=== PATIENT | female | born 1980 | race Caucasian/White ===

== ENCOUNTER → 2018-02-15 | Day surgery (SDC) | payer BC ==
[~2018-02-15] MED LIST: ACYCLOVIR200 MG PO; BIOTIN800 MCG PEG; CALCIUM ACETAT667 M1 PO; DICYCLOMINE HCL10 MG PO; FENTANYL CITRATE/PF 100MCG/2 ML INJ ONE; FLONASE; GARLIC500 M1 PO; GINKGO BILOBA500 MG PO; HYOSCYAMINE SULFATE 0.5 MG/ML AMP ONE; JUNEL FE 1 MG-1 EACH PO; MIDAZOLAM HCL 2 MG/2 ML VIAL ONE; NIACIN100 MG PO; ONDANSETRON ODT8 MG PO; PANTOPRAZOLE SO40 MG PO; PROPOFOL IV EMULSION 10 MG/ML 50 ML VIAL ONE; SEROQUEL25 MG PO; VIT B12 PO; VIT C PO; VIT E PO; ZADITOR5 ML OP; ZYRTEC-D TABLE1 EACH PO
[2018-02-15 10:08] LABS: WBC,FECAL (FECAL LACTOFERRIN) NEGATIVE (NEGATIVE)
--- NOTE | 2018-02-15 10:45 | Operative Report ---
DATE OF PROCEDURE: February 15, 2018 REFERRING PHYSICIAN: Dr. Byron Toro PROCEDURES PERFORMED 1. Esophagogastroduodenoscopy with biopsies. 2. Colonoscopy with biopsies. INDICATIONS FOR EGD: Bloating, nausea, excessive belching. INDICATIONS FOR COLONOSCOPY: Chronic diarrhea. MEDICATION: Patient was done under MAC. Please see anesthesiologist's note. PROCEDURE: With the patient in the left lateral decubitus position, the flexible fiberoptic Olympus gastroscope was introduced into the esophagus under direct visualization without any difficulty. There was some patchy erythema noted in the distal esophagus. The scope was then advanced with ease into the stomach, and the mucosa overlying the antrum and the body revealed some patchy erythema and low-grade to moderate edema, and biopsies were obtained and sent to stain for H. pylori. Pylorus appeared to be of normal contour and shape. It was intubated with ease, and the scope was advanced all the way to the 2nd portion of the duodenum. Biopsies were obtained from the proximal 2nd portion to rule out sprue. Mucosa overlying the duodenal bulb appeared to be within normal limits. The scope was then withdrawn back into the stomach and retroflexed. The mucosa overlying the fundus and the cardia appeared to be within normal limits. The scope was then straightened out. The stomach was decompressed. Scope was subsequently withdrawn. Patient tolerated the procedure well. IMPRESSION 1. Distal esophagitis. 2. Gastritis, biopsied. Biopsies sent to stain for H. pylori. 3. Rule out sprue. PLAN: Follow up histology. Initiate Protonix 40 mg 1 p.o. q.a.m. a.c. The patient was then turned around. After adequate lubrication of the anal canal, a flexible fiberoptic Olympus colonoscope was inserted into the rectum with ease and advanced all the way to the cecum. The mucosa overlying the cecum appeared to be within normal limits. The ileocecal valve was intubated, and the scope was advanced into the terminal ileum. Biopsies were obtained. The scope was then withdrawn back into the colon. The scope was then withdrawn slowly. Mucosa overlying the ascending and transverse appeared to be within normal limits. The mucosa overlying the left colon revealed some patchy areas of erythema and low-grade edema, and multiple random biopsies were obtained. The scope was then retroflexed into the distal rectum, and small internal hemorrhoids were noted, none of which was actively bleeding. The scope was then straightened out. The scope was subsequently withdrawn after securing an adequate stool specimen that was sent for the appropriate stool studies. Patient tolerated the procedure well. IMPRESSION 1. Mild, patchy, left-sided colitis. 2. Internal hemorrhoids, none actively bleeding. PLAN: Follow up histology. Follow up stool studies. Initiate Bentyl 10 mg 1 p.o. t.i.d. and VSL #3 DS 1 p.o. daily. Job#: [id number] cc:BYRON TORO MD
[2018-02-15 11:35] LABS: C DIFFICILE TOXIN A&B AMP PROB NEGATIVE (NEGATIVE)
== END | disposition home or self-care (01) ==
LOC: OR 06:48
PROVIDERS: ATTEND Internal Medicine Gastroenterology
DX: K29.70 Gastritis, unspecified, without bleeding (principal); K51.50 Left sided colitis without complications; K20.9 Esophagitis, unspecified; K21.9 Gastro-esophageal reflux disease without esophagitis; K64.8 Other hemorrhoids; E66.9 Obesity, unspecified; J45.909 Unspecified asthma, uncomplicated; F31.9 Bipolar disorder, unspecified; F41.9 Anxiety disorder, unspecified; Z68.31 Body mass index [BMI] 31.0-31.9, adult; Z83.79 Family history of other diseases of the digestive system
CPT/HCPCS: 43239; 45380; 81025; 83630; 83993; 87045; 87177; 87328; 87493; J1980; J2250

== ENCOUNTER → 2019-11-10 | Day surgery (SDC) | payer BC ==
[~2019-11-10] MED LIST changes: -BIOTIN800 MCG PEG; +BIOTIN800 MCG PO; +CBD OIL PO; +CULTURELLE1 EACH PO; +ESSENTIAL ENZYMES PO; -FENTANYL CITRATE/PF 100MCG/2 ML INJ ONE; +FISH OIL 1,0001 EAC2 PO; +GLUCAGON FOR INJ 1 MG VIAL ONE; +GLUCOSAMINE-CH1 EA18 PO; +HYOSCYAMINE 0.125 MG TAB ONE; -HYOSCYAMINE SULFATE 0.5 MG/ML AMP ONE; +LEXAPRO10 MG PO; +LIDOCAINE HCL 2% LOCAL INJ 5 ML SDV VIAL INJ ONE; +POTASSIUM PO; +TRAZODONE HCL50 MG PO; +VIT D3 PO; +ZINC PO
--- OUTSIDE RECORDS SUMMARY | 2019-11-10 06:23 | XMS REPORT ---
Author Author [facility] Address Unknown Phone Unavailable Care Team Providers Care Physician Executive Name Role Phone Unavailable Unavailable Payers Payer Name Policy Type Policy Number Effective Date Expiration Date Problems This patient has no known problems. Allergies, Adverse Reactions, Alerts Allergy Name Allergy Type Status Severity Reaction(s) Onset Date Inactive Date Treating Clinician Comments No Known Allergies DA Active U 2018-06-14 00:00:00 Medications This patient has no known medications.
--- OUTSIDE RECORDS SUMMARY | 2019-11-10 06:23 | XMS REPORT | Summary of Care ---
Author Author JUAN Rhoades, JOY Organization Unknown Address Unknown Phone Unavailable Care Team Providers Care Dump Operator Name Role Phone Gloria Millan R.N. Unavailable Unavailable JOY MARTINEZ M.D. Unavailable Unavailable Unavailable Unavailable Functional Status Name Dates Details Functional status health issues are not documented Status: Name Dates Details Cognitive status health issues are not documented Status: Problems Name Dates Details Screening for STD (sexually transmitted disease) (V74.5, Z11.3) Status: Active Bacterial vaginosis (616.10, N76.0) Status: Active Discharge from the vagina (623.5, N89.8) Status: Active control Status: Active Medications Name Dates Details TABS Active SEROquel TABS * Refills: 0 Active Zyrtec TABS * Refills: 0 Active Flonase Allergy Relief 50 MCG/ACT Nasal Suspension * Refills: 0 Active 09/19 1-20 MG-MCG Oral Tablet TAKE ONE TABLET BY MOUTH DAILY * Quantity: 84 Refills: 3 JOY MARTINEZ M.D. * Start : 04-Jan-2018 Active Fluconazole 150 MG Oral Tablet TAKE 1 TABLET 1 TIME ONLY. * Quantity: 1 Refills: 1 JOY MARTINEZ M.D. * Start : 04-Jan-2018 Active Allergies and Adverse Reactions Name Dates Details No Known Allergies (Allergy) Status: Active Past Medical History Name Dates Details History of No significant past medical history Status: Resolved Procedures Procedure Dates Details Procedures not documented Immunization Name Dates Details Immunizations not documented Social History Name Dates Details - Status: Name Dates Details Never smoker Vital Signs Date Test Result Details No Known Vitals to report Results Date Description Value Details Results not documented Plan of Care Name Dates Details Planned Observations Planned Goals not documented Interventions Provided Medication Changes* Fluconazole 150 MG Oral Tablet - Renew Instructions Name Dates Details Instructions not documented Encounters Appointment; JOY MARTINEZ M.D. Encounter Diagnosis: Problem not documented On: 21-Dec-2017 10:20
[2019-11-10 10:47] VITALS: BP 117/65
--- NOTE | 2019-11-10 12:32 | Operative Report ---
DATE OF PROCEDURE: 11/10/2019 SURGEON: Ji Mccrary MD PROCEDURE: Colonoscopy with polypectomy and biopsies. INDICATIONS FOR COLONOSCOPY: Crampy lower abdominal pain, diarrhea. MEDICATIONS: The patient was done under MAC, please see anesthesiologist's note. PROCEDURE IN DETAIL: With the patient in the left lateral decubitus position, a flexible fiberoptic Olympus colonoscope was inserted into the rectum with ease and advanced all the way to the cecum. A minute polyp was noted in the cecum that was removed per the cold biopsy forceps. The ileocecal valve was intubated and the scope was advanced into the terminal ileum, biopsies were obtained. The scope was then withdrawn back into the colon. It was then withdrawn slowly and mucosa overlying the ascending and the transverse grossly appeared to be within normal limits. There was some patchy mild inflammatory changes noted in the left colon and the rectum, and random biopsies were obtained. The scope was then retroflexed into the distal rectum and small internal hemorrhoids were noted, none of which was actively bleeding. The scope was then straightened out and it was subsequently withdrawn after securing an adequate stool specimen that was sent for the appropriate stool studies. The patient tolerated the procedure well. IMPRESSION: 1. Cecal polyp, minute, removed per cold biopsy forceps. 2. Mild patchy left-sided colitis. 3. Proctitis, mild. 4. Internal hemorrhoids, none actively bleeding. PLAN: Follow up histology. Follow up stool studies. Check IBD panel, sedimentation rate, and CRP panel. Check celiac panel. If serology is negative then we will consider a trial of Lialda in this patient. We will increase Bentyl to 20 mg p.o. t.i.d. and also initiate by Viberzi 75 mg one p.o. b.i.d. Ji Mccrary [place] [facility] [place][id number] cc: Byron Toro MD
[2019-11-10 15:15] LABS: WBC,FECAL (FECAL LACTOFERRIN) NEGATIVE (NEGATIVE)
[2019-11-10 15:59] LABS: C DIFFICILE TOXIN A&B AMP PROB NEGATIVE (NEGATIVE)
[2019-11-12 22:07] LABS: ENDOMYSIAL ANTIBODIES, IGA Negative (Negative)
== END | disposition home or self-care (01) ==
LOC: OR 06:07
PROVIDERS: ATTEND Internal Medicine Gastroenterology
DX: K51.50 Left sided colitis without complications (principal); D12.0 Benign neoplasm of cecum; K62.89 Other specified diseases of anus and rectum; K64.8 Other hemorrhoids; K21.9 Gastro-esophageal reflux disease without esophagitis; G89.29 Other chronic pain; J45.909 Unspecified asthma, uncomplicated; J30.2 Other seasonal allergic rhinitis; F41.9 Anxiety disorder, unspecified
CPT/HCPCS: 36415; 45380; 81025; 82784; 83516; 83630; 83993; 85651; 86140; 86256 ×2; 86671; 87045; 87177; 87328; 87493; J1610; J2001; J2250; J2704; 45378; 45384; 45385

== ENCOUNTER → 2020-12-31 | Outpatient (CLI) | payer BC ==
[~2020-12-31] MED LIST changes: -GLUCAGON FOR INJ 1 MG VIAL ONE; -HYOSCYAMINE 0.125 MG TAB ONE; -LIDOCAINE HCL 2% LOCAL INJ 5 ML SDV VIAL INJ ONE; -MIDAZOLAM HCL 2 MG/2 ML VIAL ONE; -PROPOFOL IV EMULSION 10 MG/ML 50 ML VIAL ONE
== END ==
LOC: US 07:12
PROVIDERS: ATTEND Internal Medicine Gastroenterology
DX: R10.10 Upper abdominal pain, unspecified (principal); K76.0 Fatty (change of) liver, not elsewhere classified
CPT/HCPCS: 76705; 78227; 81025; A9537

== ENCOUNTER → 2021-07-31 | Day surgery (SDC) | payer BC ==
[~2021-07-31] MED LIST changes: +FENTANYL CITRATE/PF 100MCG/2 ML INJ ONE; +LIDOCAINE HCL 2% LOCAL INJ 5 ML SDV VIAL INJ ONE; +METOCLOPRAMIDE HCL 10 MG/2ML VIAL ONE; +MIDAZOLAM HCL 2 MG/2 ML VIAL ONE; +ONDANSETRON HCL INJ 2MG/ML 2ML 2 MG/ML VIAL ONE; +POVIDONE IODINE 0.05% 0.05 % ML PO ONE; +PRISTIQ ER50 MG PO; +PROPOFOL IV EMULSION 10 MG/ML 20 ML VIAL ONE; +VSL#3 CAPSULE1 EACH
[2021-07-31 10:36] VITALS: BP 113/70
== END | disposition home or self-care (01) ==
LOC: OR 08:15
PROVIDERS: ATTEND Internal Medicine Gastroenterology
DX: K29.70 Gastritis, unspecified, without bleeding (principal); K31.7 Polyp of stomach and duodenum; K20.90 Esophagitis, unspecified without bleeding; K21.9 Gastro-esophageal reflux disease without esophagitis; Z86.010 Personal history of colon polyps; K51.90 Ulcerative colitis, unspecified, without complications; K64.8 Other hemorrhoids; J45.909 Unspecified asthma, uncomplicated; G80.9 Cerebral palsy, unspecified; M06.9 Rheumatoid arthritis, unspecified; M19.90 Unspecified osteoarthritis, unspecified site; F41.9 Anxiety disorder, unspecified; F32.A Depression, unspecified; Z91.02 Food additives allergy status; Z01.810 Encounter for preprocedural cardiovascular examination; Z01.812 Encounter for preprocedural laboratory examination; Z20.822 Contact with and (suspected) exposure to COVID-19
CPT/HCPCS: 43239; 81025; 93005; C9113; J2001; J2250; J2405; J2704; J2765; J3010; U0002

== ENCOUNTER → 2022-09-23 | Outpatient (CLI) | payer BC ==
[~2022-09-23] MED LIST changes: +BUPROPION XL150 MG PO; +CYCLOBENZAPRINE10 MG PO; +DESVENLAFAXINE50 M1 PO; +DIAZEPAM5 MG PO; -FENTANYL CITRATE/PF 100MCG/2 ML INJ ONE; +FLECTOR1 EACH TD; +LIALDA1.2 GM PO; -LIDOCAINE HCL 2% LOCAL INJ 5 ML SDV VIAL INJ ONE; +MELOXICAM7.5 MG PO; -METOCLOPRAMIDE HCL 10 MG/2ML VIAL ONE; -MIDAZOLAM HCL 2 MG/2 ML VIAL ONE; -ONDANSETRON HCL INJ 2MG/ML 2ML 2 MG/ML VIAL ONE; -POVIDONE IODINE 0.05% 0.05 % ML PO ONE; +PRILOSEC OTC20 MG; -PROPOFOL IV EMULSION 10 MG/ML 20 ML VIAL ONE; +ROZEREM8 MG PO; +TYLENOL ARTHRITIS PO; +VERAPAMIL ER180 M1 PO; +VIBERZI100 MG PO
== END ==
LOC: DX 09:01
PROVIDERS: ATTEND Internal Medicine Gastroenterology
DX: R10.84 Generalized abdominal pain (principal); K52.9 Noninfective gastroenteritis and colitis, unspecified; K51.519 Left sided colitis with unspecified complications; Z68.35 Body mass index [BMI] 35.0-35.9, adult
CPT/HCPCS: 74250; 81025